=== PATIENT | male | born 1965 | race Caucasian/White ===

== ENCOUNTER 2023-11-30 21:33 | Emergency (ER) | payer BC, SELFPAY ==
[2023-11-30 21:34] VITALS: BP 170/96
[2023-11-30 22:32] VITALS: BP 132/82
[2023-11-30 22:38] VITALS: BMI 28.8
--- NOTE | 2023-11-30 22:50 | ED.GENMED ---
History of Present Illness
<ERNIE Beckett - Last Filed: 11/30/23 22:58>
General
Chief Complaint: Chest Pain
Source: patient
Exam Limitations: none
Time Seen by Provider: 11/30/23 22:35
Nursing documentation reviewed up to this point in time: agreed with
Travel History
Have you had any contact with someone who has COVID-19?: No
Do you have any symptoms of coronavirus? Fever > 100 degrees, chills, cough, shortness of breath, sore throat, loss of taste or smell, muscle aches, or headache?: No
History of Present Illness
History of Present Illness:
Patient is a 58 y/o male with PMH of HIV presenting with chest pressure x 2 days. Patient states he noticed the chest pressure Thursday night when he was laying in bed. Patient states it felt like 'he couldn't catch his breath' and tightness on both
sides of his chest. Patient denies any radiation. Patient admits that the pressure comes in episodes and has happened multiple times since initial episode. Patient admits to associated lightheadedness and anxiety during these episodes. Patient admit
to increases [place] while walking that is unusual for the patient. Patient denies N/V/D/C, fever, chills, MEJIA, abdominal pain, heartburn, palpitations, dizziness, weakness, LE swelling. Patient denies any previous episodes. Patient denies any recent
illness or travel, patient denies change in diet or medications. Patient admits to one glass of wine with dinner tonight and denies tobacco use in the last 48 hrs.
Review of Systems
<ERNIE Beckett - Last Filed: 11/30/23 22:58>
Review of Systems
All Other Systems: Not applicable
Constitutional: Reports no symptoms
EENT: Reports no symptoms
Respiratory: Reports trouble breathing
Cardiac: Reports other (chest pressure, dyspnea on exertion)
ABD/GI: Reports no symptoms
: Reports no symptoms
Musculoskeletal: Reports no symptoms
Skin: Reports no symptoms
Neurological: Reports other (lightheadedness)
Endocrine: Reports no symptoms
Hematologic/Lymphatic: Reports no symptoms
Psychiatric: Reports no symptoms
Phy Exam
<ST SophyPA - Last Filed: 11/30/23 22:58>
General Physical Exam
General Presentation: well appearing and no apparent distress
General Skin: warm and dry
General Habitus: normal
General Mental: alert
General Hydration: appears well hydrated
ENT Exam
ENT Exam: EOMI, pharynx normal, neck supple and normocephalic
Eye Exam
Eye Exam: PERRL, cornea clear and conjunctiva normal
Cardiovascular Exam
Cardiovascular Exam: regular rate/rhythm, no edema, no murmur and normal peripheral pulses
Pulmonary Exam
Pulmonary Exam: lungs clear, no respiratory distress, no rales, no crackles, no rhonchi, no stridor, no wheezing and no cough
Gastrointestinal Exam
Gastrointestinal Exam: normal bowel sounds, non tender, soft, no organomegaly, no pulsatile mass and non distended
Neurological Exam
Neurological Exam: alert, oriented x3, no motor deficits and speech normal
Musculoskeletal Exam
Musculoskeletal Exam: full ROM and no edema
Skin Exam
Skin Exam: normal color, warm/dry, no rash and no petechia
Psychiatric Exam
Psychiatric Exam: normal mood/affect
Scores
<Neftali Baez DO - Last Filed: 12/01/23 00:31>
Heart Score for Chest Pain Patients
STEMI patient?: No
History: Moderately Suspicious
ECG: Normal
Age: >45 - <65 years
Risk Factors: No Risk Factors
Troponin: </= Normal Limit
Heart Score for Chest Pain Patients: 2
Heart Score Risk: 2.5% MACE over next 6 weeks
Course
<Concepcion Morfin, STPA - Last Filed: 11/30/23 22:58>
Orders/Labs/Results
Orders:
Orders
11/30/23 21:34
ECG [Electrocardiogram (*1)] Urgent
Reason for Study: Chest Pain
EKG- Treatment ONCE
11/30/23 22:52
Complete Blood Count/With Diff Urgent
Comprehensive Metabolic Panel Urgent
NT-proBNP Urgent
Comment: ADD ON
Troponin I Urgent
11/30/23 23:07
Add On- LAB Urgent
Tests Added?: pBNP
CR Chest - 2 Views Urgent
Comment:
Reason For Exam: sob
Abnormal Lab Results
11/30/23
22:52
WBC 4.0 L 10^3/uL
(4.8-10.8)
MCH 32.3 H pg
(27.0-31.0)
MCHC 38.1 H g/dL
(33.0-37.0)
Monocytes % 9.8 H %
(1.7-9.3)
Glucose 141 H mg/dl
(70-99)
AST 67 H U/L
(17-59)
ALT 53 H U/L
(0-50)
11/30/23 22:52
11/30/23 22:52
Vital Signs
Initial and Last Documented VS:
Initial Vital Signs
Temp Pulse Resp BP Pulse Ox
98.1 F 80 24 170/96 96
11/30/23 21:34 11/30/23 21:34 11/30/23 21:34 11/30/23 21:34 11/30/23 21:34
Last Documented Vital Signs
Temp Pulse Resp BP Pulse Ox
98.1 F 71 16 114/71 94
11/30/23 21:34 11/30/23 23:00 11/30/23 23:00 11/30/23 23:00 11/30/23 23:00
<Neftali Baez, DO - Last Filed: 12/01/23 00:31>
Orders/Labs/Results
Orders:
Orders
11/30/23 21:34
ECG [Electrocardiogram (*1)] Urgent
Reason for Study: Chest Pain
EKG- Treatment ONCE
11/30/23 22:52
Complete Blood Count/With Diff Urgent
Comprehensive Metabolic Panel Urgent
NT-proBNP Urgent
Comment: ADD ON
Troponin I Urgent
11/30/23 23:07
Add On- LAB Urgent
Tests Added?: pBNP
CR Chest - 2 Views Urgent
Comment:
Reason For Exam: sob
Abnormal Lab Results
11/30/23
22:52
WBC 4.0 L 10^3/uL
(4.8-10.8)
MCH 32.3 H pg
(27.0-31.0)
MCHC 38.1 H g/dL
(33.0-37.0)
Monocytes % 9.8 H %
(1.7-9.3)
Glucose 141 H mg/dl
(70-99)
AST 67 H U/L
(17-59)
ALT 53 H U/L
(0-50)
11/30/23 22:52
11/30/23 22:52
Vital Signs
Initial and Last Documented VS:
Initial Vital Signs
Temp Pulse Resp BP Pulse Ox
98.1 F 80 24 170/96 96
11/30/23 21:34 11/30/23 21:34 11/30/23 21:34 11/30/23 21:34 11/30/23 21:34
Last Documented Vital Signs
Temp Pulse Resp BP Pulse Ox
98.1 F 71 16 114/71 94
11/30/23 21:34 11/30/23 23:00 11/30/23 23:00 11/30/23 23:00 11/30/23 23:00
<ERNIE Beckett - Last Filed: 11/30/23 22:58>
MDM/Problems Addressed
Differential Diagnosis Includes:
HF exacerbation
pericardial effusion
anxiety
MDM/Problems Addressed:
chest pressure
<ERNIE Beckett - Last Filed: 11/30/23 22:58>
*Critical Care Note
Total Time (30-74mins, 75-104mins- exclusive of procedures): Not Applicable
<Neftali Baez DO - Last Filed: 12/01/23 00:31>
*Radiology
Radiology exam reviewed: preliminary read by ED provider
*Pulse Oximetry
Patient hypoxic: no
*EKG
Interpretation: normal
Comparison EKG: no comparison EKG present
Heart Rate: 78
Rate: normal
Rhythm: sinus
QRS Pattern: normal QRS
Ischemia: no ischemia
*Art Display Maker Interpretation
Rate: normal
Interpretation: normal
Heart Rate: 78
Rhythm: sinus
<Neftali Baez DO - Last Filed: 12/01/23 00:31>
Update Note
Update Note:
Update chest x-ray noted report pending, does look prior to similar chest x-ray troponin noted EKG noted proBNP noted
12:30 AM patient resting comfortably asymptomatic. Stable for discharge follow-up with PCP cardiology hotline
ED Attending Note
<ERNIE Beckett - Last Filed: 11/30/23 22:58>
-
Portions of this chart may have been created with voice recognition software.� Occasional wrong word or��sound alike� substitutions may have occurred due to the inherent limitations of voice recognition software.
<Neftali Baez, DO - Last Filed: 12/01/23 00:31>
ED Attending Note
Patient seen and examined by attending physician: Yes
I performed the substantive portion of visit, reviewed & personally made and approve the management plan that is documented in note by myself or AMADOU.: Yes
ED Attending Note:
Seen with student examined independently 58-year male HIV well-appearing, presents with few days of dyspnea, while walking, mild chest pain, no fever chills no hemoptysis, asymptomatic now, quiet chest, EKG noted, said no fever chills no weight loss,
Discharge Plan
Departure
Patient Disposition: Home (Routine Discharge)
Date of Disposition: 12/01/23
Time of Disposition: 00:30
Patient with high blood pressure during this ER visit?: No
Condition: Good
Discharge Problem:
Chest pain
Instructions: Chest Pain DCA Follow Up
Referrals:
UNKNOWN - PT DOES,NOT KNOW [Family Provider] -
Activity Restrictions/Additional Instructions:
Rest, follow-up with your primary care provider and cardiology return to the ER for worsening symptoms
Interventions
Interventions:
*Risk Screen - Suicide Last Done: 11/30/23 21:34
*General Assessment Last Done: 11/30/23 22:38
*Neglect/Abuse Screening Last Done: 11/30/23 21:34
ED- Fall Risk Assessment Last Done: 11/30/23 23:15
ED- Cardiac Assessment Last Done: 11/30/23 22:38
Discharge Date and Time
Print Language: AZERI
[2023-11-30 22:57] LABS: % Basophils 0.5 % (0-2); % Immature Granulocytes 0.3 % (0-0.5); % Monocytes 9.8 % (1.7-9.3); % Neutrophils 50.4 % (42.2-75.2); Absolute Lymphocytes 1.5 10^3/uL (1.2-3.4); Absolute Monocytes 0.4 10^3/uL (0.1-0.6); Hematocrit 40.4 % (39.0-52.0); Hemoglobin 15.4 g/dL (13.0-18.0); Mean Corp Hgb Conc. 38.1 g/dL (33.0-37.0); Mean Corpuscular Hgb 32.3 pg (27.0-31.0); Mean Corpuscular Volume 84.7 fL (80.0-94.0); Mean Platelet Volume 9.8 fL (7.4-10.4); Nucleated Red Blood Cells % 0 % (-); Platelet Count 155 10^3/uL (130-400); Red Blood Cell Count 4.77 10^6/uL (4.70-6.10); Red Cell Dist. Width 12.5 % (11.5-14.5)
[2023-11-30 23:00] VITALS: BP 114/71
[2023-11-30 23:16] LABS: ALT (SGPT) 53 U/L (0-50); AST (SGOT) 67 U/L (17-59); Albumin 4.7 g/dl (3.5-5.0); Alkaline Phosphatase 85 U/L (38-126); Blood Urea Nitrogen 12 mg/dl (9-20); Calcium 10.1 mg/dl (8.4-10.2); Carbon Dioxide 26 mmol/L (22-30); Chloride 104 mmol/L (98-107); Estimated Creatinine Clearance 114 ml/min; Glucose 141 mg/dl (70-99); Potassium 3.9 mmol/L (3.5-5.1); Sodium 140 mmol/L (135-145); Total Bilirubin 0.6 mg/dl (0.2-1.3); Total Protein 7.3 g/dl (6.3-8.2); eGFR > 60.00
[2023-11-30 23:29] LABS: Troponin I 0.015 ng/ml
[2023-11-30 23:50] LABS: NT-proBNP < 20.0 pg/ml
[2023-12-01 00:38] VITALS: BP 100/89
== END 2023-12-01 00:45 | disposition home or self-care (01) ==
LOC: EMR 21:33
PROVIDERS: EMERGENCY PHYSICIAN Emergency Medicine
DX: R07.89 Other chest pain (principal); F41.9 Anxiety disorder, unspecified; Z21 Asymptomatic human immunodeficiency virus [HIV] infection status
CPT/HCPCS: 99283; 71046; 80053; 83880; 84484; 85025; 93005